=== PATIENT | female | born 1975 | race Caucasian/White ===

== ENCOUNTER 2017-01-11 09:16 | Day surgery (SDC) | payer MEDICAID ==
[~2017-01-11] VITALS: Ht 160 cm; Wt 89.1 kg
[~2017-01-11 09:16] MED LIST: FAMO20 PO; FentaNYL CITRATE-PF 100 MCG/2 ML VIAL ONE; OMEP20 PO; SODIUM CHLORIDE 0.9% 1,000 ML IV ONE
[2017-01-11] MEDS ORDERED: PROPOFOL 1% 20 ML VIAL IVP ONE (09:17)
[2017-01-11] MEDS ORDERED: SODIUM CHLORIDE 0.9% 1,000 ML IV ONE (09:26)
== END 2017-01-11 12:10 | disposition home or self-care (01) ==
LOC: SURGERY 09:16
PROVIDERS: ATTEND Internal Medicine Gastroenterology
DX: K29.70 Gastritis, unspecified, without bleeding (principal); Z88.6 Allergy status to analgesic agent; Z98.890 Other specified postprocedural states
CPT/HCPCS: 43239; 88305; 88312; C1769; J2704; J7030; J3010